=== PATIENT | female | born 1995 | race Caucasian/White ===

== ENCOUNTER 2017-05-08 18:55 | Emergency (ER) | payer OTHER ==
[~2017-05-08] VITALS: Ht 157.5 cm; Wt 70.0 kg
[2017-05-08 19:07] VITALS: BP 117/73; PULSE 108; RESP 16; TEMP 98.2; O2SAT 100
--- NOTE | 2017-05-08 19:21 | PD ---
HPI Chief Complaint: Injury Time Seen by Provider: 19:12 Travel History International Travel<30 days: No Contact w/Intl Traveler<30days: No Traveled to known affect area: No History of Present Illness HPI 21-year-old female presents emergency department with complaints of left ankle pain after stepping in a great attempting to prevent child from falling into a great. The patient states that she is having pain in her left ankle up into her calf. She states the pain is mild to moderate. Worse with weightbearing. She denies hearing any pop or crack. Worsened by ambulation. Some relief with elevation. PFSH Past Medical History Medical History: Denies Significant Hx Diminished Hearing: No Immunizations Current: Yes Tetanus Vaccination: > 5 Years Influenza Vaccination: No ?: Not LMP: 05/01/16 : 0 Past Surgical History Surgical History: No Previous Surgery Social History Alcohol Use: No Tobacco Use: No Substance Use: No Allergies-Medications (Allergen,Severity, Reaction): Coded Allergies: amoxicillin (Verified Allergy, Unknown, 05/08/17) azithromycin (Verified Allergy, Unknown, 05/08/17) Uncoded Allergies: bee stings (Allergy, Unknown, 05/08/17) Reported Meds & Prescriptions Reported Meds & Active Scripts Active Diclofenac Sodium DR (Diclofenac Sodium) 75 Mg Tabdr 75 Mg PO BID Review of Systems Except as stated in HPI: all other systems reviewed are Neg Physical Exam Narrative GENERAL: Well-developed, well-nourished in no apparent distress. Nontoxic appearing. HEAD: Normocephalic, atraumatic. EYES: Pupils equal round and reactive. Extraocular motions intact. No scleral icterus. No injection or drainage. ENT: Nose clear. Throat without erythema, tonsillar hypertrophy or exudate. Uvula midline. Airway patent. NECK: Trachea midline. Supple, nontender, moves head freely. No central bony tenderness or spasm. CARDIOVASCULAR: Regular rate and rhythm without murmurs, gallops, or rubs. RESPIRATORY: Clear to auscultation. Breath sounds equal bilaterally. No wheezes , rales, or rhonchi. GASTROINTESTINAL: Abdomen soft, non-tender, nondistended. No hepato-splenomegaly , or palpable masses. No guarding. EXTREMITIES: No clubbing, cyanosis. Patient has tenderness and swelling over the lateral malleolus as well as the anterior talofibular ligament. There is no pain in the heel, Achilles, medial malleolus, forefoot or toes. No pain in the proximal, mid or distal fibula/tibia. No pain in the knee, hip. The right lower extremity as well as upper extremities are without localizing bony tenderness or deformity. BACK: Nontender without deformity. No flank tenderness. NEUROLOGICAL: Awake, alert and oriented x 3 .Cranial nerves grossly intact. Motor and sensory grossly within normal limits. Normal speech. Data Data Last Documented VS Vital Signs Date Time Temp Pulse Resp B/P (MAP) Pulse Ox O2 Delivery O2 Flow Rate FiO2 05/08/17 19:07 98.2 108 16 117/73 (88) 100 Orders Orders Ankle, Complete ([id number]) (05/08/17 19:17) Ice/Cold Pack (05/08/17 19:17) Acetamin-Hydrocod 325-5 Mg (Friendship 5-325 (05/08/17 19:30) Ed Discharge Order (05/08/17 19:53) Splint Or Brace Apply/Monitor (05/08/17 19:53) Crutches (05/08/17 19:53) MDM Medical Decision Making Medical Screen Exam Complete: Yes Emergency Medical Condition: Yes Medical Record Reviewed: Yes Interpretation(s) Left ankle: Negative for acute fracture. Positive soft tissue swelling. No dislocation. Differential Diagnosis MDM: High Differential diagnoses: Fracture, sprain, strain, dislocation, contusion, neurovascular injury Narrative Course Patient is given 1 Friendship 5 mg p.o., ice pack and an x-ray of the left ankle. X-ray of the left ankle is negative for acute bony injury. Patient is given an Naseem wrap, crutches. This is left ankle sprain Diagnosis Primary Impression: Left ankle sprain Qualified Codes: S93.492A - Sprain of other ligament of left ankle, initial encounter Patient Instructions: General Instructions Departure Forms: Tests/Procedures, Work Release Special Instructions: Sedentary work 5 days. Additional Instructions: Rest. Elevation. Ice for the next 2-3 days. Diclofenac. Naseem wrap and crutches. No weight-bearing then progress to weight-bearing as tolerated. Follow-up with your doctor in one week. Return to the ER if any problems. Diclofenac Med/Other Pt SpecificInfo: Prescription(s) given Scripts Diclofenac Sodium (Diclofenac Sodium DR) 75 Mg Tabdr 75 MG PO BID, #20 TAB 0 Refills Prov: Juan Francisco Manzanares MD 05/08/17 Disposition: 01 DISCHARGE HOME Condition: Stable Pawel Pimentel May 08, 2017 19:21
[2017-05-08] MEDS ORDERED: ACETAMINOPHEN/HYDROcodone 325 MG/5 MG TAB PO ONE (19:30)
[2017-05-08] MEDS ORDERED: DICL75TA PO (19:54)
--- NOTE | 2017-05-08 20:13 | RADRPT ---
EXAM DATE/TIME: 05/08/2017 19:46 [place] COMPARISON: No previous studies available for comparison. INDICATIONS : Patient twisted ankle tonight. Lateral ankle pain and swelling. MEDICAL HISTORY : None. SURGICAL HISTORY : None. ENCOUNTER: Initial ACUITY: 1 day PAIN SCORE: 8/10 LOCATION: Left Ankle FINDINGS: Three view exam was performed of the left ankle. The bony structures are in normal alignment. No ev idence of fracture, dislocation. The ankle mortise is intact. No radiopaque foreign bodies are seen. Bony mineralization is normal. CONCLUSION: 1. No acute fracture. Soft tissue swelling over the lateral malleolus. Pawel Cramer MD on May 08, 2017 at 20:11 Board Certified Radiologist. This report was verified electronically.
== END 2017-05-08 20:14 | disposition home or self-care (01) ==
LOC: NEPD 18:55
DX: S93.492A Sprain of other ligament of left ankle, initial encounter (principal); X58.XXXA Exposure to other specified factors, initial encounter; Y93.F9 Activity, other caregiving
CPT/HCPCS: 73610; 99283; E0113

== ENCOUNTER 2017-08-13 19:50 | Emergency (ER) | payer OTHER ==
[~2017-08-13] VITALS: Ht 157.5 cm; Wt 74.0 kg
[~2017-08-13 19:50] MED LIST: DICL75TA PO
[2017-08-13 19:55] VITALS: BP 110/72; PULSE 120; RESP 18; TEMP 99.6; O2SAT 98
[2017-08-13 21:16] LABS: BACTERIA, URINE MANY /hpf; BILIRUBIN, URINE NEG (NEG); BLOOD, URINE NEG (NEG); GLUCOSE,URINE NEG (NEG); KETONE, URINE 10 mg/dL (NEG); MUCUS URINE FEW /lpf (OCC); NITRITE,URINE POS (NEG); PH, URINE 6.5 (5.0-8.5); SQUAMOUS EPITHELIAL CELL URINE 11 /hpf (0-5); URINE COLOR YELLOW (YELLW/STRAW); URINE LEUKOCYTE ESTERASE LARGE (NEG)
--- NOTE | 2017-08-13 22:55 | PD ---
HPI Chief Complaint: Complaint Time Seen by Provider: 22:47 Travel History International Travel<30 days: No Contact w/Intl Traveler<30days: No Traveled to known affect area: No History of Present Illness HPI 21-year-old female , approximately 9 weeks , LMP in the middle of May, here for evaluation of generalized malaise, pelvic pain, vaginal discharge, fever. Symptoms started yesterday. She describes painful intercourse. Occasionally she has some vaginal spotting/bleeding. She also complains of dysuria and increased urinary frequency. She has not yet seen an CORPORATE TREASURER physician for care. She is sexually active with one male partner whom she has been with for a year and a half and believe she is in a monogamous relationship. PFSH Past Medical History Diminished Hearing: No Immunizations Current: Yes ?: LMP: 06/03/17 : 0 Social History Alcohol Use: No Tobacco Use: No Substance Use: No Allergies-Medications (Allergen,Severity, Reaction): Coded Allergies: Penicillins (Verified Allergy, Unknown, 08/13/17) amoxicillin (Verified Allergy, Unknown, 08/13/17) azithromycin (Verified Allergy, Unknown, 08/13/17) Uncoded Allergies: bee stings (Allergy, Unknown, 05/08/17) Reported Meds & Prescriptions Reported Meds & Active Scripts Active Review of Systems Except as stated in HPI: all other systems reviewed are Neg Physical Exam Narrative GENERAL: Well-developed, well-nourished, awake, alert, no apparent distress. SKIN: Focused skin assessment warm/dry. No rash. HEAD: Atraumatic. Normocephalic. EYES: Pupils equal and round. No scleral icterus. No injection or drainage. ENT: No nasal bleeding or discharge. Mucous membranes pink and dry. NECK: Trachea midline. No JVD. No nuchal rigidity. CARDIOVASCULAR: Regular rate and rhythm. No murmur appreciated. RESPIRATORY: No accessory muscle use. Clear to auscultation. Breath sounds equal bilaterally. GASTROINTESTINAL: Abdomen soft, non-tender, nondistended. MUSCULOSKELETAL: No obvious deformities. No clubbing. No cyanosis. No edema. NEUROLOGICAL: Awake and alert. No obvious cranial nerve deficits. Motor grossly within normal limits. Normal speech. PSYCHIATRIC: Appropriate mood and affect; insight and judgment normal. Data Data Last Documented VS Vital Signs Date Time Temp Pulse Resp B/P (MAP) Pulse Ox O2 Delivery O2 Flow Rate FiO2 08/13/17 19:55 99.6 120 18 110/72 (85) 98 Orders Orders Urinalysis - C+S If Indicated (08/13/17 19:59) Ed Urine Pregnancytest Poc (08/13/17 19:59) Urine Culture (08/13/17 20:32) Beta Hcg (Quant/Titer) (08/13/17 22:51) Complete Blood Count With Diff (08/13/17 22:51) Comprehensive Metabolic Panel (08/13/17 22:51) Gc And Chlamydia Pcr (08/13/17 22:51) Us Pelvis (Ques Preg/Ectopic) (08/13/17 ) Wet Prep Profile (08/13/17 22:51) Iv Access Insert/Monitor (08/13/17 22:51) Ecg Monitoring (08/13/17 22:51) Sodium Chlor 0.9% 1000 Ml Inj (Ns 1000 M (08/13/17 23:00) Influenzae A/B Antigen (08/13/17 22:51) Ceftriaxone Inj (Rocephin Inj) (08/13/17 23:00) Acetaminophen (Tylenol) (08/13/17 23:00) Metronidazole (Flagyl) (08/14/17 01:00) Labs Laboratory Tests Test 08/13/17 20:32 08/13/17 23:05 08/14/17 00:15 Urine Color YELLOW Urine Turbidity HAZY Urine pH 6.5 Urine Specific [place] 1.022 Urine Protein TRACE mg/dL Urine Glucose (UA) NEG mg/dL Urine Ketones 10 mg/dL Urine Occult Blood NEG Urine Nitrite POS Urine Bilirubin NEG Urine Urobilinogen LESS THAN 2.0 MG/DL Urine Leukocyte Esterase LARGE Urine RBC 4 /hpf Urine WBC 28 /hpf Urine Squamous Epithelial Cells 11 /hpf Urine Bacteria MANY /hpf Urine Mucus FEW /lpf Microscopic Urinalysis Comment CULTURE INDICATED White Blood Count 8.9 TH/MM3 Red Blood Count 4.59 MIL/MM3 Hemoglobin 13.2 GM/DL Hematocrit 39.2 % Mean Corpuscular Volume 85.4 FL Mean Corpuscular Hemoglobin 28.8 PG Mean Corpuscular Hemoglobin Concent 33.8 % Red Cell Distribution Width 13.7 % Platelet Count 239 TH/MM3 Mean Platelet Volume 9.3 FL Neutrophils (%) (Auto) 81.5 % Lymphocytes (%) (Auto) 9.9 % Monocytes (%) (Auto) 8.2 % Eosinophils (%) (Auto) 0.1 % Basophils (%) (Auto) 0.3 % Neutrophils # (Auto) 7.2 TH/MM3 Lymphocytes # (Auto) 0.9 TH/MM3 Monocytes # (Auto) 0.7 TH/MM3 Eosinophils # (Auto) 0.0 TH/MM3 Basophils # (Auto) 0.0 TH/MM3 CBC Comment DIFF FINAL Differential Comment Blood Urea Nitrogen 6 MG/DL Creatinine 0.54 MG/DL Random Glucose 83 MG/DL Total Protein 7.7 GM/DL Albumin 4.0 GM/DL Calcium Level 9.2 MG/DL Alkaline Phosphatase 47 U/L Aspartate Amino Transf (AST/SGOT) 13 U/L Alanine Aminotransferase (ALT/SGPT) 19 U/L Total Bilirubin 0.4 MG/DL Sodium Level 139 MEQ/L Potassium Level 3.9 MEQ/L Chloride Level 104 MEQ/L Carbon Dioxide Level 21.8 MEQ/L Anion Gap 13 MEQ/L Estimat Glomerular Filtration Rate 145 ML/MIN Human Chorionic Gonadotropin, Quant 99748 MIU/ML Clue Cells (Wet Prep) PRESENT Vaginal Trichomonas (Wet Prep) NONE SEEN Vaginal Yeast (Wet Prep) NONE SEEN MDM Medical Decision Making Medical Screen Exam Complete: Yes Emergency Medical Condition: Yes Differential Diagnosis , ectopic , UTI, cystitis, PID, appendicitis less likely, sepsis, influenza, dehydration, metabolic abnormality Narrative Course Initial vital signs show heart rate 120, blood pressure 110/72, pulse ox 98% on room air, oral temp 99.2F. Patient was provided Tylenol and a liter of normal saline IV and her heart to 87. CBC: WBC 8.9, hemoglobin 13.2, hematocrit 39.2, platelets 239, neutrophils 81.5% . CMP is essentially unremarkable. Beta-hCG is 32,343. Influenza is negative. UA shows hazy urine, 10 ketones, positive nitrites, large leukocyte esterase, 4 RBCs, 20 WBCs, many bacteria. Wet prep is positive for clue cells. Pelvic ultrasound: CONCLUSION: 1. Single live IUP at 11 weeks 5 days. 2. Small 1.1 cm cystic area seen adjacent to the gestational sac which could be the sequela of prior hemorrhage. Patient was made aware of all findings. After receiving a liter of normal saline IV and oral Tylenol feels significantly improved. She no longer feels body aches. She was given 1 g of IV Rocephin for her UA findings and will be started on Flagyl for bacterial vaginosis. There are no peritoneal signs on abdominal exam. She was provided a copy of the pelvic ultrasound report. I advised pelvic rest. I will give her the information to the woman's [facility] to make an appointment with this week. She was advised on when to return to the emergency department patient verbalizes understanding and agreement with plan. Diagnosis Primary Impression: Intrauterine Additional Impressions: UTI in Qualified Codes: O23.41 - Unspecified infection of urinary tract in , first trimester Bacterial vaginosis Referrals: [facility] 3 days Additional Instructions: Follow-up with an CORPORATE TREASURER physician this week. Take antibiotics as prescribed. Stay hydrated with plenty of fluids. Return to the emergency department for worsening symptoms or any other concerns. Scripts Cephalexin (Keflex) 500 Mg Cap 500 MG PO Q12H for Infection for 7 Days, #14 CAP 0 Refills Prov: Bhavin Manriquez MD 08/14/17 Metronidazole (Flagyl) 500 Mg Tab 500 MG PO BID for Infection for 7 Days, #14 TAB 0 Refills Prov: Bhavin Manriquez MD 08/14/17 Disposition: 01 DISCHARGE HOME Condition: Stable Bhavin Manriquez MD August 13, 2017 22:55
[2017-08-13] MEDS ORDERED: cefTRIAXone INJ 1,000 MG in SODIUM CHLORIDE 0.9% INJ 100 ML IV ONE (23:00)
[2017-08-13] MEDS ORDERED: ACETAMINOPHEN 325 MG TAB PO ONE (23:00)
[2017-08-13] MEDS ORDERED: SODIUM CHLOR 0.9% 1000 ML INJ 1,000 ML IV ONE (23:00)
[2017-08-13 23:44] LABS: AUTOMATED NEUTROPHIL # 7.2 TH/MM3 (1.8-7.7); BASOPHIL % 0.3 % (0.0-2.0); EOSINOPHIL % 0.1 % (0.0-4.0); HEMATOCRIT 39.2 % (35.0-46.0); HEMOGLOBIN 13.2 GM/DL (11.6-15.3); LYMPH % 9.9 % (9.0-44.0); LYMPHOCYTE # 0.9 TH/MM3 (1.0-4.8); MEAN CELL VOLUME 85.4 FL (80.0-100.0); MEAN CORPUSCULAR HEMOGLOBIN 28.8 PG (27.0-34.0); MEAN CORPUSCULAR HGB CONC 33.8 % (32.0-36.0); MEAN PLATELET VOLUME 9.3 FL (7.0-11.0); MONO % 8.2 % (0.0-8.0); MONOCYTE # 0.7 TH/MM3 (0-0.9); NEUT % 81.5 % (16.0-70.0); PLATELET COUNT 239 TH/MM3 (150-450); RED BLOOD COUNT 4.59 MIL/MM3 (4.00-5.30); RED CELL DISTRIBUTION WIDTH 13.7 % (11.6-17.2); WHITE BLOOD COUNT 8.9 TH/MM3 (4.0-11.0)
[2017-08-14 00:09] LABS: ALKALINE PHOSPHATASE 47 U/L (45-117); TOTAL BILIRUBIN ADULT 0.4 MG/DL (0.2-1.0); TOTAL PROTEIN 7.7 GM/DL (6.4-8.2)
[2017-08-14 00:10] LABS: ALT (GPT) 19 U/L (9-42); AST (GOT) 13 U/L (16-38); BICARBONATE 21.8 MEQ/L (21.0-32.0); BLOOD UREA NITROGEN 6 MG/DL (7-18); CALCIUM 9.2 MG/DL (8.5-10.1); CHLORIDE 104 MEQ/L (98-107); CREATININE 0.54 MG/DL (0.50-1.00); GLOMERULAR FILTRATION RATE 145 ML/MIN (>89); GLUCOSE,RANDOM 83 MG/DL (74-106); SODIUM (NA) 139 MEQ/L (136-145)
--- NOTE | 2017-08-14 00:34 | RADRPT ---
EXAM DATE: 08/14/2017 12:24 AM EDT AGE/SEX: 21 years / Female INDICATIONS: Spotting once today. CLINICAL DATA: This is the patient's initial encounter. Patient reports that signs and symptoms have been present for 1 day and indicates a pain score of 0/10. MEDICAL/SURGICAL HISTORY: . First trimester spotting. None. COMPARISON: No prior [facility] exams available for comparison. No external comparison. MEASUREMENTS: Uterus:__10.4 x 7.8 x 6.1 cm Endometrial Stripe:__13 mm Right Ovary:__ 4.0 x 2.2 x 1.3 cm Left Ovary:__ 3.2 x 2.4 x 1.3 cm FINDINGS: Uterus: There is a single live IUP identified. The crown rump length is 4.9 cm which corresponds to gestational age of 11 weeks 5 days. cardiac activity is identified. There is a anechoic area se en adjacent to the gestational sac measuring 1.1 x 0.8 x 0.7 cm. A small area of prior hemorrhage cou ld have this appearance. Right Ovary: Measures Left Ovary: Measures Other: No free fluid. CONCLUSION: 1. Single live IUP at 11 weeks 5 days. 2. Small 1.1 cm cystic area seen adjacent to the gestational sac which could be the sequela of prior hemorrhage. Electronically signed by: Richi Wolf MD 08/14/2017 12:33 AM EDT
[2017-08-14] MEDS ORDERED: metroNIDAZOLE 500 MG TAB PO ONE (01:00)
[2017-08-14] MEDS ORDERED: METR-1 PO (01:01)
[2017-08-14] MEDS ORDERED: CEPH-460 PO (01:01)
== END 2017-08-14 01:30 | disposition home or self-care (01) ==
LOC: NEPD 19:50
DX: O23.41 Unspecified infection of urinary tract in pregnancy, first trimester (principal); O23.591 Infection of other part of genital tract in pregnancy, first trimester; B96.20 Unspecified Escherichia coli [E. coli] as the cause of diseases classified elsewhere; Z88.0 Allergy status to penicillin; Z3A.11 11 weeks gestation of pregnancy
CPT/HCPCS: 76700; 80053; 81001; 84702; 84703; 85025; 87077; 87086; 87186; 87210; 87804; 96365; 99284; J0696; J7030; 87491; 87591

== ENCOUNTER 2017-08-16 22:23 | Emergency (ER) | payer SELFPAY ==
[~2017-08-16] VITALS: Ht 160 cm; Wt 74.0 kg
[~2017-08-16 22:23] MED LIST changes: +CEPH-460 PO; -DICL75TA PO; +METR-1 PO
[2017-08-16 22:30] VITALS: BP 102/63; PULSE 76; RESP 20; TEMP 98.4; O2SAT 99
--- NOTE | 2017-08-16 22:46 | PD ---
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 The patient reported symptoms of generalized malaise, pelvic pain, vaginal discharge, and fevers that began at that time and were evaluated by Dr. Manriquez on August 13, 2017 in the emergency department. The patient is a currently at 12 weeks gestation. She reports that she is in a monogamous relationship and has been in one for the last year and a half. The patient reports that she was diagnosed with a urinary tract infection and bacterial vaginosis. She did start the Keflex and Flagyl that was previously prescribed, however she continues to have painful urination. She reports that she has also noticed blisters on her labia, a new symptom. She denies any prior history of herpes. She denies having any fevers since her last evaluation. On review of systems otherwise, the patient denies having any recent cough, congestion, neck pain, chest pain, shortness of breath, abdominal pain, vomiting, diarrhea, or neurologic symptoms. The patient reports that she continues to have a thin white discharge. The patient reports that she has not followed up with an OB/ CERTIFIED ATHLETIC TRAINER yet as she is awaiting her Medicaid approval. [facility] Past Medical History Narrative Medical The patient's past medical history is reportedly none. Medical History: Denies Significant Hx Diminished Hearing: No Immunizations Current: Yes Tetanus Vaccination: Unknown Influenza Vaccination: No ?: : 0 Past Surgical History Surgical History: No Previous Surgery Social History Alcohol Use: No Tobacco Use: No Substance Use: No Allergies-Medications (Allergen,Severity, Reaction): Coded Allergies: Penicillins (Verified Allergy, Unknown, 08/16/17) amoxicillin (Verified Allergy, Unknown, 08/16/17) azithromycin (Verified Allergy, Unknown, 08/16/17) Uncoded Allergies: bee stings (Allergy, Unknown, 05/08/17) Reported Meds & Prescriptions Reported Meds & Active Scripts Active Valtrex (Valacyclovir HCl) 1,000 Mg Tab 1,000 Mg PO BID Keflex (Cephalexin) 500 Mg Cap 500 Mg PO Q12H 7 Days Flagyl (Metronidazole) 500 Mg Tab 500 Mg PO BID 7 Days Review of Systems Except as stated in HPI: all other systems reviewed are Neg General / Constitutional: No: Fever Eyes: No: Visual changes HENT: No: Headaches Cardiovascular: No: Chest Pain or Discomfort Respiratory: No: Shortness of Breath Gastrointestinal: No: Abdominal Pain Genitourinary: Positive: Dysuria, Discharge, Other (Vaginal pain) Musculoskeletal: No: Pain Skin: No Rash Neurologic: No: Weakness, Focal Abnormalities, Change in Mentation, Slurred Speech, Sensory Disturbance Psychiatric: No: Depression Endocrine: No: Polydipsia Hematologic/Lymphatic: No: Easy Bruising Physical Exam Narrative General: The patient is a well-developed well-nourished female in no acute distress. Head and Neck exam: Head is normocephalic atraumatic. Eyes: EOMI, pupils are equal round and reactive to light. Nose: Midline septum with pink mucous membranes Mouth: Dentition unremarkable. Moist mucus membranes. Posterior oropharynx is not erythematous. No tonsillar hypertrophy. Uvula midline. Airway patent. Neck: No palpable lymphadenopathy. No nuchal rigidity. No thyromegaly. Cardiovascular: Regular rate and rhythm without murmurs, gallops, or rubs. Lungs: Clear to auscultation bilaterally. No wheezes, rhonchi, or rales. Abdomen: Soft, without tenderness to palpation in all 4 quadrants of the abdomen. No guarding, rebound, or rigidity. Normal bowel sounds are audible. No tenderness on palpation of McBurney's point. Extremities: No clubbing, cyanosis, or edema. 2+ pulses in all 4 extremities. Back: No spinous process tenderness to palpation. No costovertebral angle tenderness to palpation. Neurologic Exam: Cranial nerves 2-12 were intact on exam. Strength is 5/5 in all 4 extremities. No sensory deficits noted. No dysdiadochokinesis. Good finger to nose and Heel to mckenna bilaterally. Skin Exam: No rash noted. Intact skin that is warm and dry. Gynecologic exam: The patient was placed in the dorsal lithotomy position. Her external genitalia were examined. She was noted to have erythema, tenderness on palpation of the labia minora with small superficial areas of ulceration that were exquisitely. These were swabbed for viral culture. The speculum was placed into her vagina and the cervix was identified. She had a physiologic appearing thin white discharge. No cervical friability. Data Data Last Documented VS Vital Signs Date Time Temp Pulse Resp B/P (MAP) Pulse Ox O2 Delivery O2 Flow Rate FiO2 08/16/17 22:30 98.4 76 20 102/63 (76) 99 Orders Orders Urinalysis - C+S If Indicated (08/16/17 22:55) Herpes Simplex Virus Culture (08/16/17 23:07) Urine Culture (08/16/17 23:00) Gc And Chlamydia Pcr (08/17/17 00:04) Valacyclovir (Valtrex) (08/17/17 00:15) Wet Prep Profile (08/17/17 01:27) Labs Laboratory Tests Test 08/16/17 23:00 08/17/17 01:30 Urine Color YELLOW Urine Turbidity HAZY Urine pH 6.0 Urine Specific [place] 1.035 Urine Protein 30 mg/dL Urine Glucose (UA) NEG mg/dL Urine Ketones TRACE mg/dL Urine Occult Blood TRACE Urine Nitrite NEG Urine Bilirubin NEG Urine Urobilinogen LESS THAN 2.0 MG/DL Urine Leukocyte Esterase LARGE Urine RBC 21 /hpf Urine WBC 25 /hpf Urine Squamous Epithelial Cells 9 /hpf Urine Renal Epithelial Cells <1 /hpf Urine Calcium Oxalate Crystals OCC /hpf Urine Bacteria RARE /hpf Urine Mucus FEW /lpf Microscopic Urinalysis Comment CULTURE INDICATED Chlamydia trachomatis DNA (PCR) NOT DETECTED Neisseria gonorrhoeae DNA (PCR) NOT DETECTED Clue Cells (Wet Prep) NONE SEEN Vaginal Trichomonas (Wet Prep) NONE SEEN Vaginal Yeast (Wet Prep) NONE SEEN MDM Medical Decision Making Medical Screen Exam Complete: Yes Emergency Medical Condition: Yes Medical Record Reviewed: Yes Differential Diagnosis Yeast vaginitis, versus bacterial vaginosis, versus urinary tract infection with failed outpatient treatment, versus genital herpes, versus trichomoniasis Narrative Course During the course of the patient's emergency department visit, the patient's history, examination, and differential diagnosis were reviewed with the patient. The patient was placed on a social services aide with oximetry and frequent blood pressure monitoring. The patient had IV access obtained and blood work sent for analysis. The patient's electronic medical record was reviewed. The patient's laboratory studies that were previously done were reviewed. The GC and Chlamydia that was previously done was canceled by the lab, therefore a urinalysis GC and Chlamydia was added to the studies done today. The patient had an ultrasound done at that time that confirmed an intrauterine with heart activity. The patient's laboratory studies were reviewed and remarkable for a Urinalysis today shows 30 protein trace ketones trace occult blood, 21 RBCs, 25 WBCs, 9 squamous epithelial cells suggesting vaginal contamination, calcium oxalate crystals that are occasional, rare bacteria, culture indicated. Wet prep done again today showed no acute abnormality. The patient had a viral herpes culture collected. The patient's urinalysis looks similar to her last urinalysis, however nitrites are no longer positive. Urine culture from August 13 was reviewed and sensitive to Keflex. The patient is instructed to complete her full course of antibiotic. The patient is instructed to continue on Flagyl. The patient will additionally be given Valtrex. She was given her first tablet in the emergency department. She is encouraged to follow-up as soon as possible with the efficiency analyst/business intelligence consultant. She is given the name of the efficiency analyst on-call for follow-up along with [facility] for women. The patient is resting comfortably and feels better, is alert and in no distress. The patient's results and examination findings were discussed with the patient. The repeat examination is unremarkable and benign. The history, exam, diagnostic testing, and current condition do not suggest any significant pathology to warrant further testing, continued ED treatment, admission, or surgical evaluation at this point. The vital signs have been stable. The patient does not have uncontrollable pain, intractable vomiting, or other significant symptoms. The patient's condition is stable and appropriate for discharge. The patient will pursue further outpatient evaluation with a primary care physician or other designated or consulting physician as indicated in the discharge instructions. The patient is instructed to report back to the emergency department immediately for reexamination in the mean time if he/ she develops any new or worsening signs or symptoms. The patient expressed understanding and was agreeable with this plan. Diagnosis Primary Impression: Herpes genitalis in women Additional Impressions: Urinary tract infection Qualified Codes: N39.0 - Urinary tract infection, site not specified; R31.9 - Hematuria, unspecified Qualified Codes: Z3A.12 - 12 weeks gestation of Referrals: Yaron Kay MD 2 days [facility] 2 days Patient Instructions: General Instructions, Genital Herpes Simplex (ED), Urinary Tract Infection in (ED) Med/Other Pt SpecificInfo: Prescription(s) given Scripts Valacyclovir (Valtrex) 1,000 Mg Tab 1000 MG PO BID for Mgmt Viral Infection, #19 TAB 0 Refills Prov: Laura Saenz MD 08/17/17 Disposition: 01 DISCHARGE HOME Condition: Stable Laura Saenz MD August 16, 2017 22:46
[2017-08-16 23:47] LABS: BACTERIA, URINE RARE /hpf; BILIRUBIN, URINE NEG (NEG); BLOOD, URINE TRACE (NEG); CALCIUM OXALATE CRYSTALS,URINE OCC /hpf; GLUCOSE,URINE NEG (NEG); KETONE, URINE TRACE mg/dL (NEG); MUCUS URINE FEW /lpf (OCC); NITRITE,URINE NEG (NEG); RENAL EPITHELIAL CELLS <1 /hpf; SQUAMOUS EPITHELIAL CELL URINE 9 /hpf (0-5); URINE COLOR YELLOW (YELLW/STRAW); URINE LEUKOCYTE ESTERASE LARGE (NEG)
[2017-08-17] MEDS ORDERED: valACYclovir HCL 500 MG TAB PO ONE (00:15)
[2017-08-17] MEDS ORDERED: VALT1TAB PO (01:22)
== END 2017-08-17 03:04 | disposition home or self-care (01) ==
LOC: NEPE 22:23
DX: O98.311 Other infections with a predominantly sexual mode of transmission complicating pregnancy, first trimester (principal); A60.00 Herpesviral infection of urogenital system, unspecified; O23.41 Unspecified infection of urinary tract in pregnancy, first trimester; Z3A.12 12 weeks gestation of pregnancy
CPT/HCPCS: 81001; 87086; 87210; 87255; 87491; 87591; 99283

== ENCOUNTER 2017-08-30 22:28 | Emergency (ER) | payer SELFPAY ==
[~2017-08-30] VITALS: Ht 157.5 cm; Wt 70.0 kg
[~2017-08-30 22:28] MED LIST changes: +VALT1TAB PO
[2017-08-30 22:50] VITALS: BP 100/59; PULSE 77; RESP 18; TEMP 98.2; O2SAT 100
[2017-08-31 00:06] LABS: BACTERIA, URINE MANY /hpf; BILIRUBIN, URINE NEG (NEG); BLOOD, URINE NEG (NEG); GLUCOSE,URINE NEG (NEG); KETONE, URINE 10 mg/dL (NEG); MUCUS URINE FEW /lpf (OCC); NITRITE,URINE POS (NEG); PH, URINE 5.5 (5.0-8.5); SQUAMOUS EPITHELIAL CELL URINE 6 /hpf (0-5); URINE COLOR YELLOW (YELLW/STRAW); URINE LEUKOCYTE ESTERASE LARGE (NEG)
--- NOTE | 2017-08-31 00:12 | PD ---
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 Patient reports that she is 13 weeks . Reports that she is still trying to find an WIRE SAW[employer]ER to see her as she has no insurance and is working on getting her Medicaid. Patient reports that she was recently seen in August 14, 2017 and was treated for bacterial vaginosis as well as a urinary tract infection with Keflex and Flagyl. Patient reports that she was receiving in the ER on August 16, 2017 and was diagnosed with herpes as well as a urinary tract infection, she was told to continue the Keflex for her urinary tract infection. Patient reports that she has since completed her full course of antibiotics, reports that for the past 2 days, she has had urinary hesitancy, denies any dysuria, denies urinary urgency or frequency. Patient also reports concerns for possible yeast infection as she has noticed thick white discharge. Patient reports that she is sexually active with one partner [facility] Past Medical History Medical History: Denies Significant Hx Diminished Hearing: No Immunizations Current: Yes Tetanus Vaccination: Unknown Influenza Vaccination: No ?: LMP: 06/04/2017 : 0 Past Surgical History Surgical History: No Previous Surgery Social History Alcohol Use: No Tobacco Use: No Substance Use: No Allergies-Medications (Allergen,Severity, Reaction): Coded Allergies: Penicillins (Verified Allergy, Unknown, 08/30/17) amoxicillin (Verified Allergy, Unknown, 08/30/17) azithromycin (Verified Allergy, Unknown, 08/30/17) Uncoded Allergies: bee stings (Allergy, Unknown, 05/08/17) Reported Meds & Prescriptions Reported Meds & Active Scripts Active Valtrex (Valacyclovir HCl) 1,000 Mg Tab 1,000 Mg PO BID Keflex (Cephalexin) 500 Mg Cap 500 Mg PO Q12H 7 Days Flagyl (Metronidazole) 500 Mg Tab 500 Mg PO BID 7 Days Review of Systems General / Constitutional: No: Fever Eyes: No: Visual changes HENT: No: Headaches Cardiovascular: No: Chest Pain or Discomfort Respiratory: No: Shortness of Breath Gastrointestinal: No: Abdominal Pain Genitourinary: Positive: Frequency, Discharge, No: Urgency, Dysuria, Nocturia, Hematuria, Pelvic Pain, Vaginal Bleeding Musculoskeletal: No: Pain Skin: No Rash Neurologic: No: Weakness Psychiatric: No: Depression Endocrine: No: Polydipsia Hematologic/Lymphatic: No: Easy Bruising Physical Exam Narrative GENERAL: No acute distress, nontoxic SKIN: Focused skin assessment warm/dry. HEAD: Atraumatic. Normocephalic. EYES: Pupils equal and round. No scleral icterus. No injection or drainage. ENT: No nasal bleeding or discharge. Mucous membranes pink and moist. NECK: Trachea midline. No JVD. CARDIOVASCULAR: Regular rate and rhythm. No murmur appreciated. RESPIRATORY: No accessory muscle use. Clear to auscultation. Breath sounds equal bilaterally. GASTROINTESTINAL: Abdomen soft, non-tender, nondistended. Hepatic and splenic margins not palpable. : Exam performed with RN at bedside, patient with no CMT or adnexal tenderness , patient does have thick white cottage cheese discharge from the vagina. MUSCULOSKELETAL: No obvious deformities. No clubbing. No cyanosis. No edema. NEUROLOGICAL: Awake and alert. No obvious cranial nerve deficits. Motor grossly within normal limits. Normal speech. PSYCHIATRIC: Appropriate mood and affect; insight and judgment normal. Data Data Last Documented VS Vital Signs Date Time Temp Pulse Resp B/P (MAP) Pulse Ox O2 Delivery O2 Flow Rate FiO2 08/30/17 22:50 98.2 77 18 100/59 (73) 100 Orders Orders Urinalysis - C+S If Indicated (08/30/17 23:25) Gc And Chlamydia Pcr (08/30/17 23:41) Wet Prep Profile (08/30/17 23:41) Urine Culture (08/30/17 23:47) Labs Laboratory Tests Test 08/30/17 23:47 08/30/17 23:54 Urine Color YELLOW Urine Turbidity HAZY Urine pH 5.5 Urine Specific [place] 1.035 Urine Protein TRACE mg/dL Urine Glucose (UA) NEG mg/dL Urine Ketones 10 mg/dL Urine Occult Blood NEG Urine Nitrite POS Urine Bilirubin NEG Urine Urobilinogen LESS THAN 2.0 MG/DL Urine Leukocyte Esterase LARGE Urine RBC 6 /hpf Urine WBC 27 /hpf Urine Squamous Epithelial Cells 6 /hpf Urine Bacteria MANY /hpf Urine Mucus FEW /lpf Microscopic Urinalysis Comment CULTURE INDICATED Clue Cells (Wet Prep) NONE SEEN Vaginal Trichomonas (Wet Prep) NONE SEEN Vaginal Yeast (Wet Prep) PRESENT MDM Medical Decision Making Medical Screen Exam Complete: Yes Emergency Medical Condition: Yes Medical Record Reviewed: Yes Interpretation(s) Vital Signs Date Time Temp Pulse Resp B/P (MAP) Pulse Ox O2 Delivery O2 Flow Rate FiO2 08/30/17 22:50 98.2 77 18 100/59 (73) 100 Differential Diagnosis uti, yeast infection, vaginitis Narrative Course During the course of the patients emergency department visit, the patients history, examination, and differential diagnosis were reviewed with the patient. A pelvic exam was performed with RN at bedside, patient with thick white discharge The patients laboratory studies were reviewed and remarkable for Laboratory Tests Test 08/30/17 23:47 08/30/17 23:54 Urine Color YELLOW (YELLW/STRAW) Urine Turbidity HAZY (CLEAR) Urine pH 5.5 (5.0-8.5) Urine Specific [place] 1.035 (1.002-1.035) Urine Protein TRACE mg/dL (NEG-TRACE) Urine Glucose (UA) NEG mg/dL (NEG) Urine Ketones 10 mg/dL (NEG) Urine Occult Blood NEG (NEG) Urine Nitrite POS (NEG) Urine Bilirubin NEG (NEG) Urine Urobilinogen LESS THAN 2.0 MG/DL (LESS Urine Leukocyte Esterase LARGE (NEG) Urine RBC 6 /hpf (0-3) Urine WBC 27 /hpf (0-5) Urine Squamous Epithelial Cells 6 /hpf (0-5) Urine Bacteria MANY /hpf (NONE) Urine Mucus FEW /lpf (OCC) Microscopic Urinalysis Comment CULTURE INDICATED Clue Cells (Wet Prep) NONE SEEN (NONE) Vaginal Trichomonas (Wet Prep) NONE SEEN (NONE) Vaginal Yeast (Wet Prep) PRESENT (NONE) UA positive for large leuk esterase, 27 white blood cells, many bacteria, urine culture was sent. Prior urine cultures were reviewed, patient is sensitive to Macrobid, will start her on Macrobid. Patient was also positive for yeast, will not start on Diflucan at this time as she is 13 weeks and difucan is contraindicated in due to the risk of teratogenicity. Patient understands importance of following up with an [employer] as soon as possible. 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
[2017-08-31] MEDS ORDERED: MACR100C2 PO (01:28)
[2017-08-31] MEDS ORDERED: NITROFURANTOIN MONOHYD MACROCR 100 MG CAP PO ONE (01:30)
== END 2017-08-31 01:51 | disposition home or self-care (01) ==
LOC: NEPE 22:28
DX: O23.41 Unspecified infection of urinary tract in pregnancy, first trimester (principal); O98.811 Other maternal infectious and parasitic diseases complicating pregnancy, first trimester; B96.20 Unspecified Escherichia coli [E. coli] as the cause of diseases classified elsewhere; Z3A.13 13 weeks gestation of pregnancy; Z88.0 Allergy status to penicillin
CPT/HCPCS: 81001; 87077; 87086; 87186; 87210; 87491; 87591; 99284